=== PATIENT | male | born 1985 | race African-American/Black ===

== ENCOUNTER 2017-03-20 19:03 | Emergency (ER) | payer BC ==
[~2017-03-20] VITALS: Ht 170.2 cm; Wt 63.5 kg
[~2017-03-20 19:03] MED LIST: HYDR-3498 PO
[2017-03-20 19:07] VITALS: Ht 170.2 cm; Wt 63.5 kg
[2017-03-20] MEDS ORDERED: morphine 4 MG/ML VIAL IV STA (19:57)
[2017-03-20] MEDS ORDERED: SOD CHLORIDE 0.9% 1,000 ML IV STA (19:57)
[2017-03-20] MEDS ORDERED: ONDANSETRON 4 MG INJ IV STA (19:57)
[2017-03-20] MEDS ORDERED: KETOROLAC 30 MG INJ IV STA (19:57)
[2017-03-20 20:51] LABS: BASOPHIL # 0.1 10^3/ul (0.0-0.1); BASOPHILS % 0.4 % (0.0-2.0); EOSINOPHILS # 0.1 10^3/ul (0.0-0.5); EOSINOPHILS % 0.4 % (0.0-7.0); HEMATOCRIT 43.2 % (42.0-52.0); HEMOGLOBIN 15.3 g/dl (14.0-18.0); LYMPHOCYTES # 1.5 10^3/ul (0.8-2.9); LYMPHOCYTES % 13.6 % (15.0-51.0); MEAN CORPUSCULAR HEMOGLOBIN 32.8 pg (29.0-33.0); MEAN CORPUSCULAR HGB CONC 35.4 g/dl (32.0-37.0); MEAN CORPUSCULAR VOLUME 92.5 fl (82.0-101.0); MEAN PLATELET VOLUME 9.9 fl (7.4-10.4); MONOCYTES % 9.1 % (0.0-11.0); NEUTROPHIL # 8.6 10^3/ul (1.6-7.5); NEUTROPHILS % 76.2 % (39.0-77.0); PLATELET COUNT 250 10^3/UL (140-415); RED BLOOD COUNT 4.67 10^6/ul (4.70-6.10); RED CELL DISTRIBUTION WIDTH 11.8 % (11.5-14.5); WHITE BLOOD COUNT 11.3 10^3/ul (4.8-10.8)
[2017-03-20 21:00] LABS: ADD UMIC YES; UR ASCORBIC ACID NEGATIVE (NEGATIVE); UR BILIRUBIN (Dip) NEGATIVE (NEGATIVE); UR BLOOD (Dip) NEGATIVE (NEGATIVE); UR CLARITY CLEAR (CLEAR); UR COLOR STRAW (YELLOW); UR GLUCOSE (Dip) NEGATIVE (NEGATIVE); UR KETONES (Dip) NEGATIVE (NEGATIVE); UR LEUKOCYTE ESTERASE (Dip) NEGATIVE Leu/ul (NEGATIVE); UR NITRITE (Dip) NEGATIVE (NEGATIVE); UR RBC 0 /HPF (0-5); UR SPECIFIC GRAVITY (Dip) 1.004 (1.003-1.030); UR TOTAL PROTEIN (Dip) 1+ mg/dl (NEGATIVE); UR UROBILINOGEN (Dip) NEGATIVE (NEGATIVE)
--- NOTE | 2017-03-20 21:05 | RADRPT ---
PROCEDURE: CT Abdomen and Pelvis without contrast. CLINICAL INDICATION: Abdominal pain TECHNIQUE: CT scan of the abdomen and pelvis was performed on a multidetector high-resolution CT s canner without intravenous contrast. Coronal and sagittal reformatted images were obtained from the axial source images. Images were reviewed on a high-resolution PACS workstation. The total exam CTD I equals 5mGy and the total exam DLP equals 276mGy-cm. One or more of the following dose reduction t echniques were used: Automated exposure control, Adjustment of the mA and/or kV according to patient size, and/or use of iterative reconstruction technique. DICOM images are available. COMPARISON: Abdominal CT 10/03/2014 FINDINGS: Evaluation of the solid organs is limited given the lack of intravenous contrast administration. The lung bases are clear. The liver, pancreas, spleen, and adrenals are grossly unremarkable. No focal pericholecystic inflammatory changes. No hydronephrosis. Punctate 1 mm bilateral renal nonobstructing stones. No obstructing renal stone. No bowel obstruction. Normal-caliber appendix. No significant retroperitoneal lymphadenopathy, ascites or evidence of pneumoperitoneum. IMPRESSION: Punctate 1 mm bilateral renal nonobstructing stones. No obstructing renal stone. No bowel obstruction. Normal-caliber appendix. RPTAT: AA .Keven Carrillo MD, MD Date Time Electronically viewed and signed by .Keven Carrillo MD, on 03/20/2017 21:04 .T/
[2017-03-20 21:12] LABS: ALBUMIN 4.3 g/dl (3.3-4.9); ALBUMIN/GLOBULIN RATIO 1.43; BILIRUBIN,INDIRECT 1.4 mg/dl (0-1.1); BILIRUBIN,TOTAL 1.4 mg/dl (0.2-1.3); CALCIUM 9.7 mg/dl (8.4-10.2); CREATININE 1.8 mg/dl (0.61-1.24); TOTAL PROTEIN 7.3 g/dl (6.1-8.1)
[2017-03-20] MEDS ORDERED: TAMS-14 PO (21:44)
[2017-03-20] MEDS ORDERED: HYDR-906 PO (21:44)
[2017-03-20] MEDS ORDERED: ONDA4TAB14 PO (21:44)
[2017-03-20] MEDS ORDERED: NAPR-260 PO (21:44)
[2017-03-20 22:01] VITALS: BP 124/66; PULSE 86; RESP 20; TEMP 98.4
--- NOTE | 2017-03-20 23:37 | ERD ---
ER Documentation Chief Complaint Chief Complaint right flank pain x 1 day HPI Patient is a 31-year-old male with past medical history of kidney stones presenting to the emergency department with right flank pain which began at 3: 30 PM today. Associated symptoms include nausea. Last bowel movement was 8 hours ago and was normal for the patient. Symptoms are intermittent but worsening. He describes them at 10 out of 10 on the pain scale. He denies vomiting, diarrhea, hematuria, or other symptoms at this time. ROS All systems reviewed and are negative except as per history of present illness. Medications Home Meds Active Scripts Ondansetron (Ondansetron Odt) 4 Mg Tab.rapdis, 4 MG PO Q6H Y for NAUSEA AND/OR VOMITING, #10 TAB Prov:ANGELITO HERNANDEZ PA-C 03/20/17 Naproxen* (Naprosyn*) 500 Mg Tablet, 500 MG PO BID Y for PAIN AND/OR INFLAMMATION, #20 TAB Prov:ANGELITO HERNANDEZ PA-C 03/20/17 Tamsulosin Hcl* (Flomax*) 0.4 Mg Cap.er.24h, 0.4 MG PO HS, #15 CAP Prov:ANGELITO HERNANDEZ PA-C 03/20/17 Hydrocodone/Acetaminophen ([place] 5-325 Tablet) 1 Each Tablet, 1 TAB PO Q6H Y for PAIN, #12 TAB Prov:ANGELITO HERNANDEZ PA-C 03/20/17 Hydrocodone Bit-Acetaminophen* ([place]*) 5-325 Mg Tab, 1 TAB PO Q6 Y for PAIN, # 7 TAB Prov:ALFREDO MEDELLIN MD 10/03/14 Allergies Allergies: Coded Allergies: Penicillins (Verified Allergy, Unknown, 04/11/14) PMhx/Soc History of Surgery: Yes (RT HAND ) Anesthesia Reaction: No Hx Neurological Disorder: No Hx Respiratory Disorders: No Hx Cardiac Disorders: No Hx Psychiatric Problems: No Hx Miscellaneous Medical Probl: Yes (KIDNEY STONES ) Hx Alcohol Use: Yes ("OCCASIONAL" ) Hx Substance Use: No Hx Tobacco Use: No Smoking Status: Never smoker Physical Exam Vitals Vital Signs Date Time Temp Pulse Resp B/P Pulse Ox O2 Delivery O2 Flow Rate FiO2 03/20/17 22:01 98.4 86 20 124/66 100 Room Air 03/20/17 19:07 98.8 88 20 109/54 100 Physical Exam Const: Nontoxic, well-appearing male in slight distress secondary to pain. Head: Atraumatic Eyes: Normal Conjunctiva ENT: Normal External Ears, Nose and Mouth. Neck: Full range of motion..~ No meningismus. Resp: Clear to auscultation bilaterally Cardio: Regular rate and rhythm, no murmurs Abd: Soft, non tender, non distended. Normal bowel sounds Skin: No petechiae or rashes Back: No midline tenderness. There is flank tenderness palpation on the right side. Ext: No cyanosis, or edema Neur: Awake and alert Psych: Normal Mood and Affect Result Diagram: 03/20/17200403/20/172004 Results 24 hrs Laboratory Tests Test 03/20/17 20:00 03/20/17 20:05 Urine Color STRAW Urine Clarity CLEAR Urine pH 7.0 Urine Specific [employer] 1.004 Urine Ketones NEGATIVEmg/dL Urine Nitrite NEGATIVEmg/dL Urine Bilirubin NEGATIVEmg/dL Urine Urobilinogen NEGATIVEmg/dL Urine Leukocyte Esterase NEGATIVELeu/ul Urine Microscopic RBC 0/HPF Urine Microscopic WBC 1/HPF Urine Hemoglobin NEGATIVEmg/dL Urine Glucose NEGATIVEmg/dL Urine Total Protein 1+mg/dl White Blood Count 11.310^3/ul Red Blood Count 4.6710^6/ul Hemoglobin 15.3g/dl Hematocrit 43.2% Mean Corpuscular Volume 92.5fl Mean Corpuscular Hemoglobin 32.8pg Mean Corpuscular Hemoglobin Concent 35.4g/dl Red Cell Distribution Width 11.8% Platelet Count 11737^3/UL Mean Platelet Volume 9.9fl Neutrophils % 76.2% Lymphocytes % 13.6% Monocytes % 9.1% Eosinophils % 0.4% Basophils % 0.4% Nucleated Red Blood Cells % 0.0/100WBC Neutrophils # 8.610^3/ul Lymphocytes # 1.510^3/ul Monocytes # 1.010^3/ul Eosinophils # 0.110^3/ul Basophils # 0.110^3/ul Nucleated Red Blood Cells # 0.010^3/ul Sodium Level 139mmol/L Potassium Level 4.0mmol/L Chloride Level 100mmol/L Carbon Dioxide Level 29mmol/L Anion Gap 14 Blood Urea Nitrogen 15mg/dl Creatinine 1.80mg/dl Glucose Level 100mg/dl Calcium Level 9.7mg/dl Total Bilirubin 1.4mg/dl Direct Bilirubin 0.00mg/dl Indirect Bilirubin 1.4mg/dl Aspartate Amino Transf (AST/SGOT) 34IU/L Alanine Aminotransferase (ALT/SGPT) 55IU/L Alkaline Phosphatase 88IU/L Total Protein 7.3g/dl Albumin 4.3g/dl Globulin 3.00g/dl Albumin/Globulin Ratio 1.43 Lipase 40U/L Current Medications Medications (Trade) Dose Ordered Sig/Ashley Route PRN Reason Start Time Stop Time Status Last Admin Dose Admin Sodium Chloride (NS) 1,000 ml @ 1,000 mls/hr Q1H STAT IV 03/20/17 19:57 03/20/17 20:56 DC 03/20/17 20:14 Morphine Sulfate (morphine) 4 mg ONCE STAT IV 03/20/17 19:57 03/20/17 19:59 DC 03/20/17 20:16 Ondansetron HCl (Zofran Inj) 4 mg ONCE STAT IV 03/20/17 19:57 03/20/17 19:59 DC 03/20/17 20:14 Ketorolac Tromethamine (Toradol) 30 mg ONCE STAT IV 03/20/17 19:57 03/20/17 19:59 DC 03/20/17 20:15 Procedures/MDM Patient is a pleasant 31-year-old male presenting to the emergency department with complaints of right flank pain. The patient was placed on a gurney and IV line established. The patient is given IV morphine, IV Zofran, IV fluids, IV Toradol. He was feeling significantly improved on reevaluation. Review of laboratory results. CBC showed slight leukocytosis at 11.3, which is likely reactive in nature secondary to pain and kidney stone. There is no anemia. Chemistry panel was significant for slightly elevated total bilirubin at 1.4 and slightly elevated creatinine at 1.80. These are likely secondary to kidney stone, but I have low suspicion for acute renal failure, sepsis, obstructing stone, or other emergent conditions at this time. CT abdomen did show punctate 1 mm bilateral renal nonobstructing stones and no other significant acute abnormalities. See full detailed report below. Patient was stable for discharge and appropriate for outpatient management with prescriptions. He agreed with the discharge plan a diagnosis. He is to return immediately for new or worsening symptoms. He is to have close follow-up with his primary care physician and with urology. PROCEDURE: CT Abdomen and Pelvis without contrast. CLINICAL INDICATION: Abdominal pain TECHNIQUE: CT scan of the abdomen and pelvis was performed on a multidetector high-resolution CT scanner without intravenous contrast. Coronal and sagittal reformatted images were obtained from the axial source images. Images were reviewed on a high-resolution PACS workstation. The total exam CTDI equals 5mGy and the total exam DLP equals 276mGy-cm. One or more of the following dose reduction techniques were used: Automated exposure control, Adjustment of the mA and/or kV according to patient size, and/or use of iterative reconstruction technique. DICOM images are available. COMPARISON: Abdominal CT 10/03/2014 FINDINGS: Evaluation of the solid organs is limited given the lack of intravenous contrast administration. The lung bases are clear. The liver, pancreas, spleen, and adrenals are grossly unremarkable. No focal pericholecystic inflammatory changes. No hydronephrosis. Punctate 1 mm bilateral renal nonobstructing stones. No obstructing renal stone. No bowel obstruction. Normal-caliber appendix. No significant retroperitoneal lymphadenopathy, ascites or evidence of pneumoperitoneum. IMPRESSION: Punctate 1 mm bilateral renal nonobstructing stones. No obstructing renal stone. No bowel obstruction. Normal-caliber appendix. RPTAT: AA .Ramiro Carrillo MD, MD Date Time Electronically viewed and signed by .Ramiro Carrillo MD, MD on 03/20/2017 21:04 Departure Diagnosis: Primary Impression: Kidney stone Condition: Fair Patient Instructions: Kidney Stone W/ Colic Referrals: COMM[facility]ITY CLIN[facility] YOU HAVE RECEIVED A MEDICAL SCREENING EXAM AND THE RESULTS INDICATE THAT YOU DO NOT HAVE A CONDITION THAT REQUIRES URGENT TREATMENT IN THE EMERGENCY DEPARTMENT. FURTHER EVALUATION AND TREATMENT OF YOUR CONDITION CAN WAIT UNTIL YOU ARE SEEN IN YOUR DOCTORS OFFICE WITHIN THE NEXT 1-2 DAYS. IT IS YOUR RESPONSIBILITY TO MAKE AN APPOINTMENT FOR FOLOW-UP CARE. IF YOU HAVE A PRIMARY DOCTOR --you should call your primary doctor and schedule an appointment IF YOU DO NOT HAVE A PRIMARY DOCTOR YOU CAN CALL OUR PHYSICIAN REFERRAL HOTLINE AT IF YOU CAN NOT AFFORD TO SEE A PHYSICIAN YOU CAN CHOSE FROM THE FOLLOWING [facility] [address] [facility]. [facility] [address] [facility] [address] [facility] [facility] [address] [facility]. [facility] [address] [facility]. [facility] [address] Additional Instructions: Call your primary care doctor TOMORROW for an appointment during the next 1-2 days.See the doctor sooner or return here if your condition worsens before your appointment time. ANGELITO HERNANDEZ PA-C Mar 20, 2017 23:37
== END 2017-03-20 22:01 | disposition home or self-care (01) ==
LOC: FTE 19:03
DX: N20.0 Calculus of kidney (principal)
CPT/HCPCS: 36415; 74176; 80053; 81001; 83690; 85025; 96374; 96375; 99285; J1885; J2270; J2405; J7030